=== PATIENT | female | born 1970 | race Hispanic/Latino ===

== ENCOUNTER 2018-11-13 09:26 | Outpatient (CLI) | payer OTHER | END 2018-11-13 09:27 | disposition home or self-care (01) | LOC: BICMAMMO 09:26 | PROVIDERS: ATTEND Family Medicine | DX: Z12.31 Encounter for screening mammogram for malignant neoplasm of breast (principal); R92.1 Mammographic calcification found on diagnostic imaging of breast; Z80.3 Family history of malignant neoplasm of breast | CPT/HCPCS: 77063; 77067 ==

== ENCOUNTER 2019-05-06 12:15 | Outpatient (CLI) | payer OTHER ==
--- NOTE | 2019-05-06 13:11 | RAD ---
RIGHT ANKLE THREE VIEWS: 05/06/19 HISTORY: Right ankle pain. FINDINGS/IMPRESSION: The ankle mortise is maintained. No fracture, dislocation, or bony destruction is seen. A tiny planta r and a larger posterior calcaneus spurs are present. POS: T[facility]
--- NOTE | 2019-05-06 13:15 | RAD ---
RIGHT FOOT THREE VIEWS: History: Right foot pain. FINDINGS/IMPRESSION: No acute fracture or dislocation is seen. Calcaneal spurs are present. There are mild degenerative ch anges in the first MTP joint. POS: T[facility]
== END 2019-05-06 12:16 | disposition home or self-care (01) ==
LOC: BICRAD 12:15
PROVIDERS: ATTEND Family Medicine
DX: M25.571 Pain in right ankle and joints of right foot (principal); M77.31 Calcaneal spur, right foot; M19.071 Primary osteoarthritis, right ankle and foot

== ENCOUNTER 2019-05-19 07:35 | Outpatient (CLI) | payer OTHER ==
--- NOTE | 2019-05-19 08:07 | ULT ---
GALLBLADDER ULTRASOUND: HISTORY: Right upper quadrant abdominal pain FINDINGS: The liver demonstrates homogeneous echotexture without focal mass or intrahepatic biliary ductal dila tation. No gallstones, gallbladder wall thickening or pericholecystic fluid are seen. The right kidney and pancreas are normal. The common duct [id number] in diameter. No free fluid is seen in the Jackson's pouch. IMPRESSION: Normal exam.
== END 2019-05-19 07:36 | disposition home or self-care (01) ==
LOC: BICULT 07:35
PROVIDERS: ATTEND Family Medicine
DX: R10.11 Right upper quadrant pain (principal)
CPT/HCPCS: 76705

== ENCOUNTER 2022-02-07 08:01 | Outpatient (CLI) | payer OTHER | END 2022-02-07 08:02 | disposition home or self-care (01) | LOC: BICMAMMO 08:01 | PROVIDERS: ATTEND Family Medicine | DX: Z12.31 Encounter for screening mammogram for malignant neoplasm of breast (principal); M85.9 Disorder of bone density and structure, unspecified; M81.0 Age-related osteoporosis without current pathological fracture | CPT/HCPCS: 77063; 77067; 77080 ==

== ENCOUNTER 2022-04-17 14:59 | Outpatient (CLI) | payer OTHER | END 2022-04-17 15:00 | disposition home or self-care (01) | LOC: BICCT 14:59 | PROVIDERS: ATTEND Otolaryngology | DX: H90.A32 Mixed conductive and sensorineural hearing loss, unilateral, left ear with restricted hearing on the contralateral side (principal); R93.89 Abnormal findings on diagnostic imaging of other specified body structures | CPT/HCPCS: 70480 ==